=== PATIENT | female | born 1975 | race Caucasian/White ===

== ENCOUNTER 2017-02-06 22:28 | Emergency (ER) | payer SELFPAY ==
[~2017-02-06] VITALS: Ht 157.5 cm; Wt 75.0 kg
[2017-02-06 22:30] VITALS: BP 137/75; PULSE 74; RESP 16; TEMP 98.3; O2SAT 99
== END 2017-02-06 23:12 | disposition left against medical advice (07) ==
LOC: NED 22:28
DX: Z53.21 Procedure and treatment not carried out due to patient leaving prior to being seen by health care provider (principal)
CPT/HCPCS: 99281